=== PATIENT | male | born 1940 | race Caucasian/White ===

== ENCOUNTER 2017-03-31 16:54 | Outpatient (CLI) | payer MEDICARE, OTHER | END 2017-03-31 16:55 | disposition short-term general hospital (02) | DX: R50.9 Fever, unspecified (principal); R11.0 Nausea | CPT/HCPCS: A0425; A0427 ==

== ENCOUNTER 2017-08-29 14:53 | Outpatient (CLI) | payer MEDICARE, OTHER ==
--- NOTE | 2017-08-29 16:14 | XRAY Preliminary Report ---
Exam: XR RIBS 3 VIEW BILAT IMPRESSION: No rib fracture or pneumothorax. [facility] SITE ID: [id number]
--- NOTE | 2017-08-29 16:16 | XRAY Report ---
EXAM: BILATERAL RIB RADIOGRAPHY EXAM DATE: 08/29/2017 03:33 PM. CLINICAL HISTORY: UNSPECIFIED FALL, INITIAL ENCOUNTER. COMPARISON: None. TECHNIQUE: 5 views. FINDINGS: Bones: Normal. No fracture or bone lesion. Lungs: No consolidative process or pneumothorax. Mediastinum: The heart size is within normal limits. Previous sternotomy noted. Other: None. IMPRESSION: No rib fracture or pneumothorax. [facility] Referring Provider Line: [phone] SITE ID: [id number]
--- NOTE | 2017-08-29 16:17 | XRAY Preliminary Report ---
Exam: XR CERVICAL SPINE COMPLETE IMPRESSION: 1. Moderate to large anterior disk osteophyte spurring from C2-C5. 2. C6-T1 not well seen on lateral images. [facility] SITE ID: [id number]
--- NOTE | 2017-08-29 16:19 | XRAY Report ---
EXAM: CERVICAL SPINE RADIOGRAPHY EXAM DATE: 08/29/2017 03:09 PM. CLINICAL HISTORY: Fall with neck tenderness. COMPARISONS: None. TECHNIQUE: 6 views. FINDINGS: Alignment: There is satisfactory alignment of the cervical spine. Bones: The C6 and C7 levels are not seen well on the lateral images due to body habitus. No fracture seen from skull base to C5. Disks: Visualized disk spaces are preserved. There are moderate to large sized anterior disk osteophy te spurs at C2-C3, C3-C4, and C4-C5. Facets: Satisfactory alignment without bony foraminal stenosis. Neural Foramina: Patent. Soft Tissues: Within normal limits. IMPRESSION: 1. Moderate to large anterior disk osteophyte spurring from C2-C5. 2. C6-T1 not well seen on lateral images. [facility] Referring Provider Line: [phone] SITE ID: [id number]
--- NOTE | 2017-08-29 16:20 | XRAY Preliminary Report ---
Exam: XR THORACIC SPINE 2 VIEW IMPRESSION: No evidence of fracture or subluxation. [facility] SITE ID: [id number]
--- NOTE | 2017-08-29 16:22 | XRAY Report ---
EXAM: THORACIC SPINE RADIOGRAPHY EXAM DATE: 08/29/2017 03:26 PM. CLINICAL HISTORY: UNSPECIFIED FALL, INITIAL ENCOUNTER. COMPARISON: None. TECHNIQUE: 2 views. FINDINGS: Alignment: No scoliosis or subluxation. Bones: Vertebral bodies appear normal in height. T1 level not well seen. Disks: There is moderate anterior disk osteophyte spurring at T12-L1.. Soft Tissues: Visualized lungs appear clear. Prior sternotomy noted. IMPRESSION: No evidence of fracture or subluxation. [facility] Referring Provider Line: [phone] SITE ID: [id number]
== END 2017-08-29 14:54 | disposition home or self-care (01) ==
LOC: DI.S 14:53
PROVIDERS: ATTEND Internal Medicine
DX: R07.9 Chest pain, unspecified (principal); W19.XXXA Unspecified fall, initial encounter; M54.6 Pain in thoracic spine; M54.2 Cervicalgia
CPT/HCPCS: 71110; 72050; 72070

== ENCOUNTER 2017-11-19 13:21 | Outpatient (CLI) | payer MEDICARE, OTHER ==
[2017-11-19 13:43] LABS: ALBUMIN 4.1 g/dL (3.2-5.5); CALCIUM 8.6 mg/dL (8.5-10.3); CREATININE 2.2 mg/dL (0.6-1.2); PHOSPHORUS 2.8 mg/dL (2.5-4.6)
== END 2017-11-19 13:22 | disposition home or self-care (01) ==
LOC: LAB 13:21
PROVIDERS: ATTEND Internal Medicine Nephrology
DX: D64.9 Anemia, unspecified (principal); R53.81 Other malaise
CPT/HCPCS: 36415; 80069

== ENCOUNTER 2017-11-19 13:30 | Outpatient (CLI) | payer MEDICARE, OTHER ==
--- NOTE | 2017-11-19 17:18 | XRAY Report ---
DATE OF SERVICE: 11/19/2017 TWO VIEW CHEST: 11/19/2017 CLINICAL INDICATION: Cough, COPD. COMPARISON: 08/29/2017. FINDINGS: Frontal and lateral views of the chest demonstrate stable changes of cardiac surgery. The cardiac silhouette remains enlarged. Mild interstitial prominence is present, which may reflect mild edema. No focal infiltrate, effusion, or pneumothorax is evident. IMPRESSION: CARDIOMEGALY, WITH MILD INTERSTITIAL PROMINENCE, WHICH MAY REFLECT MILD EDEMA. NO FOCAL INFILTRATE. TD: 11/19/2017 18:18
== END 2017-11-19 13:31 | disposition home or self-care (01) ==
LOC: DI 13:30
PROVIDERS: ATTEND Internal Medicine
DX: J44.9 Chronic obstructive pulmonary disease, unspecified (principal); I51.7 Cardiomegaly; D64.9 Anemia, unspecified; R53.81 Other malaise
CPT/HCPCS: 36415; 71046; 80069

== ENCOUNTER 2017-11-28 13:35 | Outpatient (CLI) | payer MEDICARE, OTHER ==
[2017-11-28 12:54] LABS: ALBUMIN 4.1 g/dL (3.2-5.5); CALCIUM 8.3 mg/dL (8.5-10.3); CREATININE 1.7 mg/dL (0.6-1.2); PHOSPHORUS 3.2 mg/dL (2.5-4.6)
[2017-11-28] MEDS ORDERED: ALBUTEROL NEB 2.5 MG/3 ML INH ONE (14:00)
== END 2017-11-28 13:36 | disposition home or self-care (01) ==
LOC: RT 13:35
PROVIDERS: ATTEND Internal Medicine
DX: D64.9 Anemia, unspecified (principal); R06.00 Dyspnea, unspecified; J44.9 Chronic obstructive pulmonary disease, unspecified; R09.89 Other specified symptoms and signs involving the circulatory and respiratory systems
CPT/HCPCS: 36415; 80069; 94060; 94729; J7613

== ENCOUNTER 2018-07-09 09:49 | Outpatient (CLI) | payer MEDICARE, OTHER ==
--- NOTE | 2018-07-09 13:20 | Mammography Report ---
Reason: PALPABLE LUMP RIGHT BREAST WITH NIPPLE PAIN FOR 4WKS Procedure Date: 07/09/2018 Accession Number: [id number] / [id number] Procedure: [facility] - Diagnostic Dig Bilat CPT Code: FULL RESULT: EXAM: Diagnostic Dig Bilat, Breast Unilateral Limited DATE: 07/09/2018 12:15 PM CLINICAL HISTORY: Palpable lump right breast in a male patient BILATERAL MAMMOGRAPHY: TECHNIQUE: Bilateral digital CC and MLO projections. COMPARISON: None FINDINGS: There is extensive fatty replacement of the breast tissue. There is asymmetric increased density in the right subareolar region most consistent with benign gynecomastia. No suspicious microcalcifications, dominant mass, architectural distortion, or skin thickening. RIGHT BREAST ULTRASOUND: TECHNIQUE: Real-time scanning of the right subareolar region with saved static images reviewed. FINDINGS: In the subareolar region right breast there is a 1.2 x 2.2 x 0.9 cm area of flame-shaped soft tissue density without evidence of a discrete mass or fluid collection. IMPRESSION: Benign findings right breast consistent with gynecomastia. RECOMMENDATION: Clinical follow-up. BIRADS CATEGORY 2: Benign findings STANDARD QUALIFYING STATEMENTS: 1. This examination was reviewed with the aid of Computer-Aided Detection (CAD). 2. A negative or benign imaging report should not delay biopsy if clinically suspicious findings are present. Consider surgical consultation if warrented. More than 5% of cancers are not identified by imaging. 3. Dense breasts may obscure an underlying neoplasm.
== END 2018-07-09 09:50 | disposition home or self-care (01) ==
LOC: DI 09:49
PROVIDERS: ATTEND Internal Medicine
DX: N63.41 Unspecified lump in right breast, subareolar (principal); N64.4 Mastodynia
CPT/HCPCS: 76642; 77066

== ENCOUNTER 2018-07-09 09:51 | Outpatient (CLI) | payer MEDICARE, OTHER ==
--- NOTE | 2018-07-09 14:30 | CT Report ---
Reason: COPD, HX OF HEAVY TOBACCO USE Procedure Date: 07/09/2018 Accession Number: [id number] / [id number] Procedure: CT - Chest W/O CPT Code: FULL RESULT: EXAM: CT CHEST EXAM DATE: 07/09/2018 10:05 AM. CLINICAL HISTORY: COPD, HX OF HEAVY TOBACCO USE. Difficulty breathing COMPARISONS: 11/19/2017 chest x-ray. TECHNIQUE: Routine helical CT imaging was performed through the chest. IV contrast: None. Reconstructions: Coronal and sagittal. In accordance with CT protocol optimization, one or more of the following dose reduction techniques were utilized for this exam: automated exposure control, adjustment of mA and/or KV based on patient size, or use of iterative reconstructive technique. FINDINGS: Lungs/Pleura: Centrilobular emphysematous changes. No nodules, bronchial thickening, consolidation, or edema. Pulmonary vasculature is normal. No pericardial or pleural effusion. No pneumothorax. Mediastinum: Status post sternotomy. No adenopathy or masses. The heart and great vessels are normal. Bones: Degenerative change in the spine. Included upper abdomen: Right renal cyst; cholelithiasis. Other: None. IMPRESSION: No acute findings chest CT with changes of remote sternotomy. Minor emphysematous change. Cholelithiasis. Simple right renal cyst. [facility]
== END 2018-07-09 09:52 | disposition home or self-care (01) ==
LOC: DI 09:51
PROVIDERS: ATTEND Internal Medicine
DX: J43.9 Emphysema, unspecified (principal); Z87.891 Personal history of nicotine dependence; K80.20 Calculus of gallbladder without cholecystitis without obstruction; N28.1 Cyst of kidney, acquired; N64.4 Mastodynia; N63.41 Unspecified lump in right breast, subareolar; I13.0 Hypertensive heart and chronic kidney disease with heart failure and stage 1 through stage 4 chronic kidney disease, or unspecified chronic kidney disease; N18.2 Chronic kidney disease, stage 2 (mild); I50.32 Chronic diastolic (congestive) heart failure; D64.9 Anemia, unspecified
CPT/HCPCS: 36415; 71250; 76642; 77066; 80069; 82043; 82570; 83540; 83970; 84466; 84550; 85027

== ENCOUNTER 2018-07-09 10:19 | Outpatient (CLI) | payer MEDICARE, OTHER ==
[2018-07-09 11:38] LABS: HGB - HEMOGLOBIN 12.2 g/dL (14.0-18.0); MEAN CORPUSCULAR HEMOGLOBIN 30.7 pg (27.0-31.0); MEAN CORPUSCULAR HGB CONC 34.1 g/dL (32.0-36.0); MEAN PLATELET VOLUME 8.7 fL (7.4-11.4); RED BLOOD COUNT 3.96 10^6/uL (4.70-6.10); RED CELL DISTRIBUTION WIDTH 16.7 % (12.0-15.0); WHITE BLOOD COUNT 9.2 x10^3/uL (4.8-10.8)
[2018-07-09 11:58] LABS: CALCIUM 8.7 mg/dL (8.5-10.3); CREATININE 1.7 mg/dL (0.6-1.2); PHOSPHORUS 4.2 mg/dL (2.5-4.6); URIC ACID 11.1 mg/dL (2.6-7.2)
[2018-07-09 12:04] LABS: CREATININE,URINE 67.7 mg/dL
[2018-07-09 12:06] LABS: MICROALBUMIN,URINE < 0.2 mg/dL (0-300.0)
== END 2018-07-09 10:20 | disposition home or self-care (01) ==
LOC: LAB 10:19
PROVIDERS: ATTEND Internal Medicine Nephrology
DX: I13.0 Hypertensive heart and chronic kidney disease with heart failure and stage 1 through stage 4 chronic kidney disease, or unspecified chronic kidney disease (principal); N18.2 Chronic kidney disease, stage 2 (mild); I50.32 Chronic diastolic (congestive) heart failure; D64.9 Anemia, unspecified
CPT/HCPCS: 36415; 80069; 82043; 82570; 83540; 83970; 84466; 84550; 85027